=== PATIENT | female | born 1990 | race Caucasian/White ===

== ENCOUNTER 2017-07-09 22:12 | Inpatient (IN) | payer BC, OTHER ==
[~2017-07-09] VITALS: Ht 160 cm; Wt 65.8 kg
--- NOTE | 2017-07-09 22:55 | NUR ---
PREADMISSION NOTE: 27 year old, well-nourished, alert, caucasion female seen in Intake room. Patient states that she is allergic to Wellbutrin and Tegretol medications, and also she has had 1 seizure, in 2011, which was withdrawal related. Patient denies any pain at this time, though she states, " I'm tired. It's really been a long day". Vital signs are: 98-88-18 112/76, O2 Sat 98%. Patient given explanation about [facility] floor protocols and medication reconciliation. Patient nods her head and states, "Okay". Patient cooperative and verbally appropriate when interacting with nurse.
[2017-07-09] MEDS ORDERED: NICOTINE 14 MG/24HR PATCH TD PRN (23:15)
[2017-07-09] MEDS ORDERED: LOPERAMIDE HCL 2 MG CAPSULE PO PRN ×2 (23:15)
[2017-07-09] MEDS ORDERED: MAGNESIUM HYDROXIDE 30 ML LIQUID UDC PO PRN (23:15)
[2017-07-09] MEDS ORDERED: BUPRENORPHINE HCL 2 MG TAB.SUBL SL PRN (23:15)
[2017-07-09] MEDS ORDERED: MIRALAX 17 GM POWD.PACK PO PRN (23:15)
[2017-07-09] MEDS ORDERED: ONDANSETRON 4 MG/2 ML VIAL IM PRN (23:15)
[2017-07-09] MEDS ORDERED: LORAZEPAM 2 MG/1 ML VIAL IM PRN (23:15)
[2017-07-09] MEDS ORDERED: NICOTINE POLACRILEX 4 MG GUM-PK OF TEN BC PRN (23:15)
[2017-07-09] MEDS ORDERED: DICYCLOMINE HCL 20 MG TABLET PO PRN (23:15)
[2017-07-09] MEDS ORDERED: LORAZEPAM 1 MG TABLET PO PRN ×2 (23:15)
[2017-07-09] MEDS ORDERED: MAG HYDROX/AL HYDROX/SIMETH 30 ML LIQUID UDC PO PRN (23:15)
--- NOTE | 2017-07-09 23:17 | NUR ---
ADMISSION NOTE: Patient admitted to [facility], ambulatory, to room # 321, after being given a brief tour of [facility] floor and kitchen by PUBLICATIONS EDITOR staff. Gait is steady. Patient is oriented to person, place, day, date and her personal situation. Reoriented to time. Patient's color is pink and her skin is clean, warm, dry and intact. Bilateral lung sounds are clear per auscultation. Color tatoo noted on : (1)left wrist (2) left foot and (3) lower back. Multiple small, intact, closed lumps and bumps noted on and under patient's skin on her bilateral hands and forearms. Patient states, " Those are places where I missed". Patient states that she has a history of: endocarditis and pulmonary embolism, from 11/2016 and she contracted Hepatitis C in December,. Patient also has a history of anxiety and depression, and she states that she has been taking daily Lovenox 40 mg SQ since 11/2016. Patient stands 5 feet and 3 inches tall, and she weighs 145 lbs. Patient is admitted for: (1) Heroin, IV and smoked, daily, 2-3 grams. Last use was 07/09/17 in AM, 1 gram, inhaled. Patient has been using Heroin for 7 years, on/off. (2) Xanax, Oral, daily use, 4-6 mg. Last use was on 07/07/17 in AM, 2 mg oral. Patient has been using Xanax for 3 years, on/off. (3) Klonopin, Oral, daily use, 2-3 mg. Last use was on 07/08/17, 1 mg oral. Patient has been using Klonopin for the past month only. Patient states that her longest period of sobriety was in 2016, for 7 months. Patient states that she has previously been in treatment at (1) [facility] [place] [facility] (outpatient), in [place] , 90 days, 2016 (2) [facility], (inpatient), in [place], 60 days , 2013 (3) [facility], (inpatient), in [place], [place], 30 days, 2011. Vital signs are: 98.2-90-18 117/76, O2 Sat 98%, COWS 4, CIWA 2. Patient given sandwich snack with juice and water. Patient oriented to her room and nurse call light. Patient brought with her (1) OTC bottle of Vit B-12, 2000 mcg which was reconciled per floor protocol. Patient also brought with her 5 Empty prescription bottles, which were also reconciled per floor protocol. Patient is friendly, cooperative and verbally appropriate. Fall/Seizure precautions put in place. Bed is locked and in lowest position, padded bed rails are up X 2 and call light on bed. Please see more patient information on preadmission note.
[2017-07-10] VITALS: BP 117/76
[2017-07-10] MEDS ORDERED: LORAZEPAM 1 MG TABLET PO ONE (00:05)
[2017-07-10 00:14] LABS: *URINE HCG, QUAL NEGATIVE (NEGATIVE)
[2017-07-10] MEDS: IBUPROFEN 600 MG TABLET PO PRN ×2 (00:40→19:53)
--- NOTE | 2017-07-10 00:40 | NUR ---
PRN MEDICATION: Prn Motrin 600 mg p.o. given per c/o "pounding headache" , 6-7/10 pain scale.
[2017-07-10] MEDS: diphenhydrAMINE 50 MG CAPSULE PO PRN ×2 (00:41→20:32)
--- NOTE | 2017-07-10 00:41 | NUR ---
PRN MEDICATION: Prn Benadryl 50 mg p.o. given for sleep.
[2017-07-10] MEDS ORDERED: LORAZEPAM 1 MG TABLET ONE (00:46)
[2017-07-10] MEDS ORDERED: IBUPROFEN 600 MG TABLET ONE (00:47)
[2017-07-10] MEDS ORDERED: diphenhydrAMINE 50 MG CAPSULE ONE (00:47)
[2017-07-10] MEDS ORDERED: OXYC15TA2 PO (01:11)
[2017-07-10] MEDS ORDERED: CLON0.1T PO (01:11)
[2017-07-10] MEDS ORDERED: CLON0.5T4 PO ×2 (01:11)
[2017-07-10] MEDS ORDERED: PENI500T PO (01:11)
--- NOTE | 2017-07-10 01:41 | NUR ---
REASSESSMENT PRN MEDICATIONS: Patient is sleeping soundly in -like position of comfort, with eyes closed and respirations quiet, unlabored at 14.
[2017-07-10 04:00] VITALS: BP 119/79
--- NOTE | 2017-07-10 04:00 | NUR ---
V/S are: 97.9-81-12 119/79, O2 Sat 99%. Patient too sleepy to do COWS, CIADEN at this time.
--- NOTE | 2017-07-10 06:30 | NUR ---
0630 Patient slept a total of 5 hours and she had 2 voids and no stools. Total intake was 860 ml p.o. Prn medications given noted separately per floor protocol. V/SS afebrile, last COWS 2 last CIWA 2 at this time. SQD hose applied to patient's bilateral lower legs and pump turned. Patient is presently resting comfortably in stable condition with eyes closed and respirations even at 14.
[2017-07-10 06:59] LABS: *AMPHETAMINE, URINE POSITIVE (NEGATIVE); *BARBITURATE, URINE NEGATIVE (NEGATIVE); *CANNABINOID, URINE NEGATIVE (NEGATIVE); *COCCAINE, URINE NEGATIVE (NEGATIVE); *PHENCYCLIDINE SCREEN,URINE NEGATIVE (NEGATIVE)
--- NOTE | 2017-07-10 07:05 | NUR ---
COWS 2, CIWA 2.
--- NOTE | 2017-07-10 07:15 | NUR ---
Start of shift note SBAR report rcv'd. Pt was admitted for benzo and opiate dependence. Pt has an allergies to wellbutrin, tegretol, is a full code and on a regular diet. Pt has a PMHx of endocarditis in 11/2016, PE in 11/27, hep C, anxiety, depression, and had an appendectomy. Pt is going to start a 5 day ativan and 5 day subutex taper today. Pt is currently resting in bed, pt has no complaints at this time. Will continue to monitor pt.
[2017-07-10 07:24] LABS: *OPIATE, URINE POSITIVE (NEGATIVE)
[2017-07-10 08:00] VITALS: BP 106/68
[2017-07-10] MEDS ORDERED: GABAPENTIN 300 MG CAPSULE PO SCH (09:00)
[2017-07-10] MEDS ORDERED: TUBERCULIN,PURIF.PROT.DERIV. 5 TU/0.1 ML TEST ID ONE (09:00)
[2017-07-10] MEDS: LORAZEPAM 1 MG TABLET PO SCH ×4 (09:58→20:32)
[2017-07-10] MEDS: BUPRENORPHINE HCL 2 MG TAB.SUBL SL SCH ×4 (09:58→20:33)
[2017-07-10] MEDS: ENOXAPARIN SODIUM 40 MG/0.4 ML DISP.SYRIN SQ SCH (10:01)
[2017-07-10] MEDS: METOPROLOL SUCCINATE XL 25 MG TAB.SR.24H PO SCH (10:45)
--- NOTE | 2017-07-10 11:11 | NUR ---
PRN administration Pt vomiting multiple times. Administered PRN zofran IM to LD. Will continue to monitor pt.
--- NOTE | 2017-07-10 11:41 | NUR ---
Reassessment Pt states that her nausea has improved, no vomiting noted. Will continue to monitor. Dr Paniagua aware, gave ok to give 1300 meds now.
[2017-07-10 12:00] VITALS: BP 114/72
[2017-07-10] MEDS ORDERED: LORAZEPAM 1 MG TABLET PO PRN ×2 (12:00)
--- NOTE | 2017-07-10 12:11 | NUR ---
Reassessment Pt noted to be sleeping soundly in her bed. Will continue to monitor pt. All needs addressed at this time.
[2017-07-10] MEDS: ONDANSETRON ODT 4 MG TAB.RAPDIS SL PRN ×2 (14:26→20:30)
--- NOTE | 2017-07-10 14:26 | NUR ---
PRN administration Pt c/o nausea and vomited x 2, administered PRN zofran SL per MD order. Will continue to monitor pt.
--- NOTE | 2017-07-10 14:28 | NUR ---
PRN administration Pt has COWS of 14 and CIWA of 13. Administered PRN subutex and ativan per MD order. Waited several minutes after zofran was completely dissolved between administration. Will continue to monitor.
--- NOTE | 2017-07-10 14:56 | NUR ---
Reassessment Pt states that her nausea has improved, no vomiting noted. Pt states that she doesn't want to take the gabapentin at this time d/t her consistent nausea. Will continue to monitor pt.
[2017-07-10] MEDS: GABAPENTIN 300 MG CAPSULE PO SCH ×2 (15:00→20:31)
--- NOTE | 2017-07-10 15:26 | NUR ---
Reassessment Pt states that the medications were effective in alleviating her severe s/s of withdrawal. Pt has a COWS of 8 and CIWA of 7. Will continue to monitor pt.
[2017-07-10 16:30] VITALS: BP 138/82
[2017-07-10] MEDS: ACETAMINOPHEN 325 MG TABLET PO PRN (16:48)
[2017-07-10] MEDS: METHOCARBAMOL 750 MG TABLET PO PRN (16:48)
--- NOTE | 2017-07-10 16:50 | NUR ---
Reassessment pt states that she feels comfortable at this time and that the medications were effective in reducing her headache and body aches to a 2/10. Will continue to monitor pt. All needs addressed at this time.
--- NOTE | 2017-07-10 16:50 | NUR ---
PRN administration Pt c/o body ache 01/20 and a headache 12/21. administered PRN robaxin and tylenol per MD order. Will continue to monitor pt.
--- NOTE | 2017-07-10 19:14 | NUR ---
End of shift note Pt was admitted for benzo and opiate dependence. Pt has an allergies to wellbutrin, tegretol, is a full code and on a regular diet. Pt has a PMHx of endocarditis in 11/2016, PE in 11/27, hep C, anxiety, depression, and had an appendectomy. Pt subutex taper and ativan taper were initiated during the shift. Pt required multiple PRN medications during the shift to manage her severe s/s of withdrawal. Pt had a COWS and CIWA of 9 and 5 at 1600 after multiple medications. Pt is currently sleeping in bed. SBAR report endorsed to nurse.
--- NOTE | 2017-07-10 19:38 | NUR ---
Start of Shift Patient is a 27 year old female admitted to [facility] on 07-09-17 for Opiate, and benzo detox. PAtient has PMH of Endocarditis, Pulmonary Embolism, Hepatitis C, Anxiety and Depression. She has allergies to Wellbutrin and tegretol. She is a full code and on a regular diet. She is on fall and seizure precautions. Last COWS 9, CIWA 5. Patient with vomiting and nausea during day. Currently in bed with eyes closed resting. Safety measures in place, bed locked in lowest position with 2 padded side rails up for safety. Call light within reach. Report received from AM nurse.
[2017-07-10 20:00] VITALS: BP 117/77
--- NOTE | 2017-07-10 20:30 | NUR ---
PRN medication Patient with noted nausea. Zofran 4mg SL administered with effect pending Patient with complaints of abdominal spasms Bentyl 20 mg PO administered. Effect pending. Patient with complaints of headache 01/20. Motrin 600 mg PO administered. Effect pending Patient with complaints of difficulty sleeping Benadryl 50 mg PO administered. Effect pending.
[2017-07-10] MEDS: QUETIAPINE FUMARATE 100 MG TABLET PO SCH (20:31)
--- NOTE | 2017-07-10 21:00 | NUR ---
Reassessment of patient Patient reassessed 30 minutes S/P administration of Zofran 4mg Sl for nausea. No further N/V reported. Patient resting comfortably Tolerating fluids/snacks.
--- NOTE | 2017-07-10 21:34 | NUR ---
Reassessment of patient Patient reassessed one hour after administration of Bentyl 20 mg PO administered. Effectiveness noted. Patient denies current abdominal spasms. Patient reassessed one hour after Motrin 600 mg PO administered. Effectiveness noted. Patient denies current headache. Patient reassessed one hour after Benadryl 50 mg PO administered. Effect fair. Patient resting in bed, feeling tired, but not asleep upon reassessment.
--- NOTE | 2017-07-10 23:43 | NUR ---
Reassessment of patient Patient reassessed one hour after receiving Tylenol 650 mg po administered for headache. Patient reports decrease in headache/ effect noted.
[2017-07-11] VITALS: BP 140/85
--- NOTE | 2017-07-11 04:00 | NUR ---
COWS/CIWA deferred 0400 COWS/CIWA deferred for sleep
[2017-07-11 04:14] VITALS: BP 113/59
--- NOTE | 2017-07-11 06:51 | NUR ---
End of shift Patient is a 27 year old female admitted to [facility] on 07-09-17 for Opiate, and Benzodiazepine detox. Patient has PMH of Endocarditis, Pulmonary Embolism, Hepatitis C, Anxiety and Depression. She has allergies to Wellbutrin and Tegretol. She is a full code and on a regular diet. She is on fall and seizure precautions. She has intermittent Pneumatic CD in place. Patient VS at 2000 BP 117/77, P 100 R 16, SPO2 100% on RA T 98.2. COWS 7 CIWA 9. VS at 0000 BP 140/85, P 94, R 16, SPO2 97% on RA, T 98.2. COWS 3, CIWA 3. VS at 0400 BP 113/59, P 84, R 16, SPO2 99% on RA, T 98.0 Patient slept a total of 10 hours. Intake 1250 ml output 2 voids . Safety measures in place, bed locked in lowest position with 2 padded side rails up for safety. Call light within reach. Report given to AM nurse.
--- NOTE | 2017-07-11 07:45 | NUR ---
START OF SHIFT Rcvd endorsement from ongoing nurse, client is in room, she is a/o x 4, she presents with depressed mood, flat affect. She reports restless legs, body aches, abdominal cramps, nausea, and chills. Encouraged client to attend group therapy for skills to maintain sober. Encouraged client to increase PO fluid as tolerated to facilitate detox. Client is a 27 y/o female, admitted to [facility] for withdrawal from benzodiazepine and heroin. She is on 5 day Ativan/Subutex taper (day 3), tolerating well. Last CIWA 3/ COWS 3 @ 2400. PRN Motrin 600mg PO for DAVIS, Bentyl 20mg for abdominal spasms PO for anxiety, Benadryl 50mg PO for inability to sleep, she slept 10 hrs. She denies any of withdrawal-induced seizures, Client reports allergy to bupropion, carbamazepine, she is full code, Regular diet. Side rails x 2 up/padded for seizure precautions. Call light within reach.
[2017-07-11 08:00] VITALS: BP 118/73
[2017-07-11] MEDS: BUPRENORPHINE HCL 2 MG TAB.SUBL SL SCH ×3 (09:37→20:57)
[2017-07-11] MEDS: LORAZEPAM 1 MG TABLET PO SCH ×3 (09:37→20:56)
[2017-07-11] MEDS: GABAPENTIN 300 MG CAPSULE PO SCH ×3 (09:37→20:56)
[2017-07-11] MEDS: SERTRALINE HCL 100 MG TABLET PO SCH (09:38)
[2017-07-11] MEDS: ENOXAPARIN SODIUM 40 MG/0.4 ML DISP.SYRIN SQ SCH (09:39)
[2017-07-11] MEDS: METOPROLOL SUCCINATE XL 25 MG TAB.SR.24H PO SCH (09:58)
[2017-07-11 12:55] VITALS: BP 123/87
[2017-07-11] MEDS ORDERED: DICYCLOMINE HCL 10 MG CAPSULE PO PRN (15:32)
[2017-07-11] MEDS: ACETAMINOPHEN 325 MG TABLET PO PRN ×2 (16:02→22:43)
--- NOTE | 2017-07-11 16:04 | NUR ---
PRN medication; Patient is complaining of generalized pain and headache rated 6/10 on pain scale. PRN Tylenol 650mg PO given for pain. Will continue to monitor patient and will notify primary nurse.
[2017-07-11 16:55] VITALS: BP 120/77
--- NOTE | 2017-07-11 17:04 | NUR ---
Reassessment PRN Tylenol 650 mg PO effective, client verbalizes relief from generalized pain and headache 0/10.
--- NOTE | 2017-07-11 19:28 | NUR ---
END OF SHIFT Endorsed client to incoming nurse, Client is a 27 y/o female, she is a/o x 4, admitted to [facility] for withdrawal from benzodiazepine and heroin. She is on 5 day Ativan/Subutex taper (day 3), tolerating well. Last CIWA 7/ COWS 7 @ 1600. PRN Tylenol 650mg PO for DAIVS, noted effective. She continue to present with anxious mood, flat affect, chills, and fatigue. Encouragement needed to attend to group therapy. Adequate PO fluid intake 1596mL, void x 4. She denies hx of withdrawal-induced seizures, Client report allergy to bupropion, carbamazepine, she is full code, Regular diet. Side rails x 2 up/padded for seizure precautions. Call light within reach.
--- NOTE | 2017-07-11 19:30 | NUR ---
Start of Shift Patient is a 27 year old female admitted to [facility] on 07-09-17 for Opiate, and benzo detox. Patient has PMH of Endocarditis, Pulmonary Embolism, Hepatitis C, Anxiety and Depression. She has allergies to Wellbutrin and Tegretol. She is a full code and on a regular diet. She is on fall and seizure precautions. Last COWS 7, CIWA 7 at 1600. Safety measures in place, bed locked in lowest position with 2 padded side rails up for safety. Call light within reach. Report received from AM nurse.
[2017-07-11 20:00] VITALS: BP 134/97
[2017-07-11] MEDS: diphenhydrAMINE 50 MG CAPSULE PO PRN (20:56)
[2017-07-11] MEDS: QUETIAPINE FUMARATE 100 MG TABLET PO SCH (20:56)
--- NOTE | 2017-07-11 20:56 | NUR ---
PRN medication Patient reports inability to sleep, requesting Benadryl. Patient received Benadryl 50 mg PO at 2055 Effect pending.
--- NOTE | 2017-07-11 21:56 | NUR ---
Reassessment of patient Patient reassessed one hour after PRN Benadryl 50 mg administered for sleeplessness. Patient reports feeling "tired" but not yet sleeping. Effect noted as fair at present time.
[2017-07-11] MEDS: ONDANSETRON ODT 4 MG TAB.RAPDIS SL PRN (22:43)
--- NOTE | 2017-07-11 22:43 | NUR ---
PRN medication Patient with headache 5 out of 10 Tylenol 650 mg po administered. effect pending
--- NOTE | 2017-07-11 22:48 | NUR ---
PRN medication Patient with complaints of nausea. Zofran 4mg SL PO administered PRN. Effect pending.
--- NOTE | 2017-07-11 23:12 | NUR ---
Reassessment of patient Patient reassessed 30 minutes after administration of Zofran 4mg SL administered for nausea. Patient reports nausea subsided.
[2017-07-12] VITALS: BP 106/68
[2017-07-12 04:00] VITALS: BP 113/69
--- NOTE | 2017-07-12 04:00 | NUR ---
COWS/CIWA deferred 0400 COWS/CIWA deferred for sleep
--- NOTE | 2017-07-12 06:52 | NUR ---
End of shift Patient is a 27 year old female admitted to [facility] on 07-09-17 for Opiate, and benzo detox. Patient has PMH of Endocarditis, Pulmonary Embolism, Hepatitis C, Anxiety and Depression. She has allergies to Wellbutrin and Tegretol. She is a full code and on a regular diet. She is on fall and seizure precautions. VS at 2000 BP 134/87, P 80, R 14, SPO2 98% on RA, T 98.6 COWS 8 CIWA 6. Patient received Benadryl 50 mg PO at 2055 for insomnia with effectiveness noted. Patient received Tylenol 650 mg PO for Headache at 2242 with good effect. Patient received Zofran 4mg SL at 2248 for nausea with good effect noted. VS at 0000 BP 106/68, P 96, R 14, SPO2 96% on RA, T 97.8. COWS 5, CIWA 4. VS at 0400 BP 113/69, P 64, R 16, T 98.1, SPO2 98% on RA. CIWA/COWS deferred for sleep. Patient slept a total of 7 hours. Intake 1355 ml Output 1 void. Safety measures in place, bed locked in lowest position with 2 padded side rails up for safety. Call light within reach. Report given to AM nurse.
--- NOTE | 2017-07-12 07:42 | NUR ---
Start of shift note; Received report from night nurse. Patient is 27 year old female admitted on 07/09/17 for opiate/Benzo, Patient was placed on Ativan and Subutex taper. Patient noted to be allergic to Wellbutrin and Tegretol.Patient reported history of endocarditis, pulmonary embolism, HEP C, anxiety, depression, appendectomy. PRN Zofran, Tylenol, Benadryl were given last night all noted to be effective. Patient's last CIWA is 4 and last COWS is 5 noted at 2100 per endorsement. Patient is on fall and seizure precaution. Bed in lowest position, call light within reach. Will continue to monitor patient.
[2017-07-12 08:00] VITALS: BP 125/81
[2017-07-12 08:36] LABS: BASOPHILS % (AUTO) 0.7 % (0.0-2.0); EOSINOPHILS # (AUTO) 0.5 K/uL (0.0-0.7); EOSINOPHILS % (AUTO) 6.9 % (0.0-7.0); HEMATOCRIT 37.9 % (31.2-41.9); HEMOGLOBIN 12.9 g/dL (10.9-14.3); LYMPHOCYTES # (AUTO) 3.2 K/uL (20.0-40.0); LYMPHOCYTES % (AUTO) 45.1 % (20.5-51.5); MEAN CORPUSCULAR HEMOGLOBIN 28.3 uug (24.7-32.8); MEAN CORPUSCULAR HGB CONC 34 g/dL (32.3-35.6); MEAN CORPUSCULAR VOLUME 83.1 fL (75.5-95.3); MONOCYTES # (AUTO) 0.4 K/uL (2.0-10.0); MONOCYTES % (AUTO) 5.9 % (0.0-11.0); NEUTROPHILS # (AUTO) 2.9 K/uL (1.8-8.9); NEUTROPHILS % (AUTO) 41.4 % (38.5-71.5); PLATELET COUNT (AUTO) 224 K/uL (179-408); RED BLOOD CELL COUNT(AUTO) 4.56 MIL/uL (3.63-4.92); WHITE BLOOD COUNT (AUTO) 7.1 K/uL (3.8-11.8)
[2017-07-12 08:49] LABS: ALANINE AMINOTRANSFERASE 16 U/L (14-59); ALKALINE PHOSPHATASE 55 U/L (50-136); ASPARTATE AMINOTRANSFERASE 8 U/L (15-37); BILIRUBIN,TOTAL 0.1 mg/dL (0.2-1.0); CARBON DIOXIDE 25 mmol/L (21-32); CHLORIDE 106 mmol/L (98-107); ETHANOL < 3 MG/DL (0-0); GLUCOSE 97 mg/dL (74-106); MAGNESIUM 1.8 mg/dL (1.8-2.4); POTASSIUM 3.5 mmol/L (3.5-5.1); TOTAL PROTEIN, SERUM 7.2 g/dL (6.4-8.2); UREA NITROGEN, BLOOD 11 mg/dL (7-18)
[2017-07-12] MEDS: GABAPENTIN 300 MG CAPSULE PO SCH (08:51)
[2017-07-12] MEDS: METOPROLOL SUCCINATE XL 25 MG TAB.SR.24H PO SCH (08:52)
[2017-07-12] MEDS: LORAZEPAM 1 MG TABLET PO SCH ×3 (08:52→20:59)
[2017-07-12] MEDS: ENOXAPARIN SODIUM 40 MG/0.4 ML DISP.SYRIN SQ SCH (08:52)
[2017-07-12] MEDS: SERTRALINE HCL 100 MG TABLET PO SCH (08:52)
[2017-07-12] MEDS ORDERED: BUPRENORPHINE HCL 2 MG TAB.SUBL SL SCH ×2 (09:00→15:00)
--- NOTE | 2017-07-12 10:32 | NUR ---
Therapist prompted client about group times. Client stated she will start attending groups today.
[2017-07-12 12:00] VITALS: BP 130/90
--- NOTE | 2017-07-12 13:45 | NUR ---
Activity Group Note: Client participated in "Mau" activity. Intervention goal was to increase task focus and leisure skills. Client appeared to have an anxious mood with flat affect. Client had a coherent and goal-directed thought process, as she was able to understand and complete the task. Client stated that the activity was "fun, but I want to go relax now." She left activity group 30 minutes early. Client benefits from leisure activities and social interaction with peers. 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
[2017-07-12] MEDS ORDERED: KETOROLAC TROMETHAMINE 30 MG INJ IM PRN (14:15)
[2017-07-12] MEDS: BACLOFEN 10 MG TABLET PO SCH ×2 (14:31→20:58)
[2017-07-12] MEDS: BUPRENORPHINE HCL 2 MG TAB.SUBL SL SCH ×3 (14:31→20:59)
[2017-07-12] MEDS: DICYCLOMINE HCL 10 MG CAPSULE PO SCH ×2 (14:31→20:58)
[2017-07-12] MEDS: GABAPENTIN 400 MG CAPSULE PO SCH ×2 (14:31→20:59)
[2017-07-12] MEDS ORDERED: DICYCLOMINE HCL 20 MG TABLET PO SCH (15:00)
[2017-07-12 16:00] VITALS: BP 118/82
[2017-07-12] MEDS: ASPIRIN/ACETAMINOPHEN/CAFFEINE TABLET PO PRN (17:04)
--- NOTE | 2017-07-12 17:10 | NUR ---
PRN medication; Patient is complaining of migraine. PRN Excedrin 1 tab given as per ordered. Will continue to monitor patient for effectiveness of medication.
--- NOTE | 2017-07-12 18:10 | NUR ---
Re-assessment; Patient denies headache at this time. PRN medication is effective.
--- NOTE | 2017-07-12 18:19 | NUR ---
End of shift note; Patient is AOX4. Patient is 27 year old female admitted on 07/09/17 for opiate/Benzo, Patient was placed on Ativan and Subutex taper. Patient noted to be allergic to Wellbutrin and Tegretol.Patient reported history of endocarditis, pulmonary embolism, HEP C, anxiety, depression, appendectomy. Patient remained compliant with treatment plan and medication regime. Medications were effective in reducing withdrawal symptoms. Patient's last COWS is 4 and last CIWA is 3 at 1600. Met all patient's needs.
--- NOTE | 2017-07-12 19:12 | NUR ---
Start of shift note Received report from day shift nurse. Pt is a 27 yo female, A+Ox4, presenting to [facility] for Opiate/Benzo dependence. Pt has Allergies to Wellbutrin and Tegretol, is on full code status, and on Regular diet. Pt is on Fall and Seizure precautions. Pt has HX of Endocarditis, Pulmonary Embolism, Hep C, Anxiety, Depression, and Appendectomy. Pt is on 5 day Ativan and 5 day Subutex tapers, tolerated well. No s/s of distress noted at this time. Respirations even and unlabored. Will continue to monitor.
[2017-07-12 20:20] VITALS: BP 118/77
[2017-07-12] MEDS: QUETIAPINE FUMARATE 100 MG TABLET PO SCH (20:58)
[2017-07-12] MEDS: ONDANSETRON ODT 4 MG TAB.RAPDIS SL PRN (23:03)
--- NOTE | 2017-07-12 23:09 | NUR ---
PRN Zofran and Bentyl Pt c/o nausea and abdominal cramps and requested for PRN Zofran and Bentyl. Medications given and tolerated well. Will reassess within 1 HR. Will continue to monitor.
--- NOTE | 2017-07-13 00:05 | NUR ---
PRN Zofran and Bentyl Reassessment Medications effective. Pt is resting well in bed. No s/s of ASE/distress noted at this time. Respirations even and unlabored. Will continue to monitor.
[2017-07-13 00:53] VITALS: BP 114/73
[2017-07-13 04:05] VITALS: BP 112/71
--- NOTE | 2017-07-13 06:51 | NUR ---
End of shift note Pt is a 27 yo female, A+Ox4, presenting to [facility] for Opiate/Benzo dependence. Pt has Allergies to Wellbutrin and Tegretol, is on full code status, and on Regular diet. Pt is on Fall and Seizure precautions. Pt has HX of Endocarditis, Pulmonary Embolism, Hep C, Anxiety, Depression, and Appendectomy. Pt is on 5 day Ativan and 5 day Subutex tapers, tolerated well. Pt was given PRN Zofran and Bentyl @2309. Pt slept for a total of 7 HRS. Last COWS: 2 and Last CIWA: 2 @0400. No s/s of distress noted at this time. Respirations even and unlabored. Will endorse to day shift nurse.
--- NOTE | 2017-07-13 07:31 | NUR ---
Start of shift note; Received report from night nurse. Patient is 27 year old female admitted on 07/09/17 for opiate/Benzo, Patient was placed on Ativan and Subutex taper. Patient noted to be allergic to Wellbutrin and Tegretol.Patient reported history of endocarditis, pulmonary embolism, HEP C, anxiety, depression, appendectomy. PRN Zofran, Tylenol, Bentyl were given last night all noted to be effective. Patient's last CIWA is 2 and last COWS is 2 noted at 2100 per endorsement. Patient slept for 7 hours. Patient is on fall and seizure precaution. Bed in lowest position, call light within reach. Will continue to monitor patient.
[2017-07-13 08:00] VITALS: BP 109/68
[2017-07-13 08:06] LABS: HEPATITIS B SURFACE AG Negative (Negative)
[2017-07-13] MEDS: DICYCLOMINE HCL 10 MG CAPSULE PO SCH ×2 (08:39→15:00)
[2017-07-13] MEDS: METOPROLOL SUCCINATE XL 25 MG TAB.SR.24H PO SCH (08:40)
[2017-07-13] MEDS: BACLOFEN 10 MG TABLET PO SCH ×2 (08:40→15:18)
[2017-07-13] MEDS: LORAZEPAM 1 MG TABLET PO SCH ×2 (08:40→20:16)
[2017-07-13] MEDS: BUPRENORPHINE HCL 2 MG TAB.SUBL SL SCH ×3 (08:40→20:17)
[2017-07-13] MEDS: SERTRALINE HCL 100 MG TABLET PO SCH (08:40)
[2017-07-13] MEDS: GABAPENTIN 400 MG CAPSULE PO SCH ×2 (08:40→15:19)
[2017-07-13] MEDS: ENOXAPARIN SODIUM 40 MG/0.4 ML DISP.SYRIN SQ SCH (08:41)
[2017-07-13 12:00] VITALS: BP 115/77
[2017-07-13 16:00] VITALS: BP 119/83
[2017-07-13] MEDS: ASPIRIN/ACETAMINOPHEN/CAFFEINE TABLET PO PRN (16:09)
--- NOTE | 2017-07-13 16:12 | NUR ---
PRN medication; Patient is complaining of migraines, PRN Excedrin 1 tab given for migraines. Will continue to monitor patient for effectiveness of medication.
--- NOTE | 2017-07-13 17:12 | NUR ---
Re-assessment; Patient denies migraine at this time. PRN medication noted to be effective.
--- NOTE | 2017-07-13 18:19 | NUR ---
End of shift note; Patient is AOX4. Patient is 27 year old female admitted on 07/09/17 for opiate/Benzo, Patient was placed on Ativan and Subutex taper. Patient noted to be allergic to Wellbutrin and Tegretol.Patient reported history of endocarditis, pulmonary embolism, HEP C, anxiety, depression, appendectomy. Patient remained compliant with treatment plan and medication regime. Medications were effective in reducing withdrawal symptoms. Patient's last COWS is 2 and last CIWA is 2 at 1600. Met all patient's needs.
[2017-07-13 20:00] VITALS: BP 117/75
--- NOTE | 2017-07-13 20:00 | NUR ---
Start of Shift Pt is a 27 year old female admitted for Opiate/Benzo dependence, placed on 5 day Ativan and 5 day Subutex taper. Pt reported using Heroin 2-3g/daily, Xanax 4-6mg/daily and Klonopin 2-3mg/daily. PMH: endocarditis, pulmonary embolism (pt is on Lovenox SQ daily), Hepatitis C, anxiety, depression and appendectomy. Pt reports allergies to Wellbutrin and Tegretol. Upon assessment, pt reports feeling anxious, reports muscle aches, stomach cramps, skin clammy/flushed, respirations even/unlabored, denies SOB/chest pain, denies n/v/d, medications due, safety measures in place, call light within reach, side rails up x2, bed locked and in low position. Will continue to monitor.
[2017-07-13] MEDS: BACLOFEN 20 MG TABLET PO SCH (20:16)
[2017-07-13] MEDS: QUETIAPINE FUMARATE 100 MG TABLET PO SCH (20:16)
[2017-07-13] MEDS: GABAPENTIN 300 MG CAPSULE PO SCH (20:16)
[2017-07-13] MEDS: DICYCLOMINE HCL 20 MG TABLET PO SCH (20:17)
[2017-07-13] MEDS: ONDANSETRON ODT 4 MG TAB.RAPDIS SL PRN (21:32)
--- NOTE | 2017-07-13 21:32 | NUR ---
Pt reports feeling nauseous and anxious. Episode of emesis. BP 139/90, pulse 98 Zofran 4mg ODT PRN, Clonidine 0.1mg PRN administered. Safety measures in place, will continue to monitor.
[2017-07-13] MEDS: CLONIDINE HCL 0.1 MG TABLET PO PRN (21:39)
--- NOTE | 2017-07-13 22:32 | NUR ---
Pt reports relief of nausea. BP 125/77, pulse 92 Needs met, safety measures in place, will continue to monitor.
[2017-07-13] MEDS ORDERED: METOPROLOL TARTRATE 50 MG TABLET PO ONE (23:00)
[2017-07-13] MEDS ORDERED: LORAZEPAM 1 MG TABLET PO ONE (23:00)
--- NOTE | 2017-07-13 23:00 | NUR ---
Pt reports chest pain, rated 6-7/10 and radiated towards left shoulder. BP 145/89, pulse 130, SpO2 95% - pt placed on O2 at 2 liters for precaution MD notified, new orders given. Metoprolol 50mg x1 and Ativan 2 mg x1 administered. EKG resulted in Normal Sinus Rhythm Awaiting on results of Chest x-ray and Labs Troponin, D-Dimer , BMP & CBC. Safety measures in place, will continue to monitor.
[2017-07-13] MEDS ORDERED: LORAZEPAM 1 MG TABLET ONE (23:13)
[2017-07-13] MEDS ORDERED: METOPROLOL TARTRATE 50 MG TABLET ONE (23:13)
[2017-07-13 23:24] LABS: BASOPHILS # (AUTO) 0.1 K/uL (0.0-8.0); BASOPHILS % (AUTO) 0.5 % (0.0-2.0); EOSINOPHILS # (AUTO) 0.6 K/uL (0.0-0.7); EOSINOPHILS % (AUTO) 5.5 % (0.0-7.0); HEMATOCRIT 37.1 % (37-47); HEMOGLOBIN 12.4 G/DL (12.0-16.0); LYMPHOCYTES # (AUTO) 3.6 K/UL (0.8-4.8); LYMPHOCYTES % (AUTO) 33.9 % (20.5-51.5); MEAN CORPUSCULAR HEMOGLOBIN 27.6 UUG (27.0-31.0); MEAN CORPUSCULAR HGB CONC 34 g/dL (32.0-37.0); MEAN CORPUSCULAR VOLUME 82.2 FL (81.0-99.0); MONOCYTES # (AUTO) 0.6 K/UL (0.1-1.30); MONOCYTES % (AUTO) 5.5 % (0.0-11.0); NEUTROPHILS # (AUTO) 5.6 K/UL (1.8-8.9); NEUTROPHILS % (AUTO) 54.6 % (38.5-71.5); PLATELET COUNT (AUTO) 233 K/UL (150-450); RED BLOOD CELL COUNT(AUTO) 4.51 MIL/UL (4.2-5.4); WHITE BLOOD COUNT (AUTO) 10.5 K/UL (4.0-11.2)
[2017-07-13 23:31] LABS: CREATININE 1.1 mg/dL (0.6-1.3); MAGNESIUM 1.6 mg/dL (1.8-2.4)
[2017-07-13] MEDS ORDERED: MAGNESIUM OXIDE 400 MG TABLET PO ONE (23:45)
[2017-07-14] VITALS: BP 107/58
--- NOTE | 2017-07-14 | NUR ---
Magnesium 1.6, Supplemented with Mag-Ox 800mg BP 107/58, pulse 84, resp 18, SpO2 96% room air, no reports of pain, no reports of chest pain CIWA 4, COWS 4. Needs met, Safety measures in place, will continue to monitor
[2017-07-14] MEDS ORDERED: MAGNESIUM OXIDE 400 MG TABLET ONE (00:02)
[2017-07-14 04:00] VITALS: BP 97/58
--- NOTE | 2017-07-14 04:00 | NUR ---
Vital Signs/COWS & CIWA deferred BP 97/58, pulse 78, resp 16, SpO2 96% room air, temp 98.1, no pain COWS/CIWA deferred due to pt sleeping, to assess while pt is awake as ordered. Safety measures in place, will continue to monitor.
--- NOTE | 2017-07-14 06:57 | NUR ---
End of Shift Pt is a 27 year old female admitted for Opiate/Benzo dependence, placed on 5 day Ativan and 5 day Subutex taper. Pt reported using Heroin 2-3g/daily, Xanax 4-6mg/daily and Klonopin 2-3mg/daily. PMH: endocarditis, pulmonary embolism (pt is on Lovenox SQ daily), Hepatitis C, anxiety, depression and appendectomy. Pt reports allergies to Wellbutrin and Tegretol. During shift, pt reported feeling anxious, reports muscle aches, stomach cramps, skin clammy/flushed scheduled taper medications administered, effective in management of s/s of withdrawal, CIWA 4 and COWS 4. Clonidine 0.1mg PRN and Zofran 4mg ODT PRN administered, both effective. At 2300, pt reported chest pain, rated 6-7/10 and radiated towards left shoulder with BP 145/89, pulse 130, SpO2 95% - pt placed on O2 at 2 liters for precaution .MD notified, new orders given: Metoprolol 50mg x1 and Ativan 2 mg x1 administered. EKG resulted in Normal Sinus Rhythm, Chest x-ray, Troponin, D-Dimer , BMP & CBC all resulted normal. Magnesium 1.6, Supplemented with Mag-Ox 800mg . Latest BP 97/58, pulse 78, resp 16, SpO2 96% room air with no reports of chest pain. Pt slept for 6 hours, intake of 1446 ml PO, voids x2 and stool x0. VTE 2, SCD pumps at bedside. Safety measures in place, call light within reach, side rails up x2, bed locked and in low position. Endorsed to day shift nurse.
--- NOTE | 2017-07-14 07:19 | NUR ---
Start of shift note; Received report from night nurse. Patient is 27 year old female admitted on 07/09/17 for opiate/Benzo, Patient was placed on Ativan and Subutex taper, no adverse reactions noted. Patient noted to be allergic to Wellbutrin and Tegretol.Patient reported history of endocarditis, pulmonary embolism, HEP C, anxiety, depression, appendectomy. Patient's last COWS score is 4 and last CIWA is 4. Patient had chest pain episode last night, EKG, troponin level, BMP, CMP and chest Xray done, all noted to be within normal limits. Patient received one time order of magnesium, Ativan, Lopressor all noted to be effective per endorsement. Patient slept for 6 hours. Patient is on fall and seizure precaution. Bed in lowest position, call light within reach. Patient is currently AOX4, denies any chest pain or anxiety. Will continue to monitor patient.
[2017-07-14 08:00] VITALS: BP 100/61
[2017-07-14] MEDS: SERTRALINE HCL 100 MG TABLET PO SCH (08:27)
[2017-07-14] MEDS: BACLOFEN 20 MG TABLET PO SCH ×3 (08:27→20:59)
[2017-07-14] MEDS: DICYCLOMINE HCL 20 MG TABLET PO SCH ×3 (08:27→20:59)
[2017-07-14] MEDS: METOPROLOL SUCCINATE XL 25 MG TAB.SR.24H PO SCH (08:27)
[2017-07-14] MEDS: GABAPENTIN 300 MG CAPSULE PO SCH ×3 (08:27→20:59)
[2017-07-14] MEDS: ENOXAPARIN SODIUM 40 MG/0.4 ML DISP.SYRIN SQ SCH (08:27)
[2017-07-14] MEDS: IBUPROFEN 600 MG TABLET PO PRN (08:40)
[2017-07-14] MEDS ORDERED: LORAZEPAM 1 MG TABLET PO SCH (09:00)
[2017-07-14] MEDS ORDERED: BUPRENORPHINE HCL 2 MG TAB.SUBL SL SCH (09:00)
--- NOTE | 2017-07-14 09:52 | NUR ---
PRN medication; Patient is complaining of pain r/t to toothache rated 6/10 on pain scale. PRN Motrin 600mg PO given for pain. Will continue to monitor patient.
[2017-07-14] MEDS: METHOCARBAMOL 750 MG TABLET PO PRN (10:39)
[2017-07-14] MEDS: CLONIDINE HCL 0.1 MG TABLET PO PRN (10:39)
--- NOTE | 2017-07-14 10:44 | NUR ---
PRN medication; Patient is complaining of muscle aches, chills, anxiety and agitation. PRN Robaxin 750mg PO given for muscle aches and Clonidine 0.1mg PO for agitation, anxiety and chills given as per ordered. Will continue to monitor patient for effectiveness of medication.
--- NOTE | 2017-07-14 10:52 | NUR ---
Re-assessment; Patient denies pain/toothache at this time. PRN medication noted to be effective.
[2017-07-14] MEDS ORDERED: LORAZEPAM 1 MG TABLET PO ONE (11:00)
--- NOTE | 2017-07-14 11:04 | NUR ---
Ativan one time dose; Patient was evaluated by MD. Patient noted to have increased anxiety and agitation, chills, sweating with current CIWA of 7. MD ordered Ativan 2mg PO one time. Relaxation techniques observed. Will closely monitor patient. Addendum: 07/14/17 at 1220 by MAX KEATING LVN Patient was educated by regarding HIV.
--- NOTE | 2017-07-14 11:44 | NUR ---
Re-assessment; Patient is calm at this time, decreased anxiety noted. Patient denies muscle aches at this time. PRN Clonidine and Robaxin noted to be effective.
[2017-07-14 12:00] VITALS: BP 100/63
--- NOTE | 2017-07-14 12:04 | NUR ---
Re-assessment; Patient appears calm, decreased anxiety noted with current CIWA score of 4. One time dose of Ativan noted to be effective.
[2017-07-14] MEDS: ONDANSETRON ODT 4 MG TAB.RAPDIS SL PRN (12:08)
--- NOTE | 2017-07-14 12:08 | NUR ---
PRN Zofran; Patient is complaining of nausea, no emesis noted. PRN Zofran 4mg ODT given. Will continue to monitor patient for effectiveness of medication.
--- NOTE | 2017-07-14 13:08 | NUR ---
Re-assessment; Patient denies nausea at this time. PRN Zofran noted to be effective.
[2017-07-14] MEDS: BUPRENORPHINE HCL 2 MG TAB.SUBL SL SCH ×2 (14:30→20:59)
[2017-07-14] MEDS: LORAZEPAM 1 MG TABLET PO SCH ×2 (14:31→20:59)
[2017-07-14 16:00] VITALS: BP 96/64
--- NOTE | 2017-07-14 16:43 | NUR ---
Nurse note; Patient is AOX4, currently in group therapy. Patient stated " I feel dizzy and lightheaded, im not sure why maybe because i am stressed out", assisted patient back to her room. Vital signs are as follows; BP 96/64, HR 81, Spo2 99% , Temperature 98.2, respirations of 18. Safety measures secured. Will closely monitor patient.
--- NOTE | 2017-07-14 18:29 | NUR ---
End of shift note; Patient is AOX4. Patient is 27 year old female admitted on 07/09/17 for opiate/Benzo, Patient was placed on Ativan and Subutex taper. Patient noted to be allergic to Wellbutrin and Tegretol.Patient reported history of endocarditis, pulmonary embolism, HEP C, anxiety, depression, appendectomy. Patient's Ativan and Subutex tapers were modified by MD. Patient remained compliant with treatment plan and medication regime. Medications were effective in reducing withdrawal symptoms. Patient's last COWS is 3 and last CIWA is 3 at 1600. Patient denies pain or discomfort at this time. Patient is calm and comfortable.All safety measures secured, call light within reach. no Met all patient's needs.
[2017-07-14 20:00] VITALS: BP 103/72
--- NOTE | 2017-07-14 20:00 | NUR ---
Start of Shift Pt is a 27 year old female admitted for Opiate/Benzo dependence, placed on modified Ativan and Subutex taper. Pt reported using Heroin 2-3g/daily, Xanax 4-6mg/daily and Klonopin 2-3mg/daily. PMH: endocarditis, pulmonary embolism (pt is on Lovenox SQ daily), Hepatitis C, anxiety, depression and appendectomy. Pt has new dx of HIV, diagnosed at [facility]. Pt reports allergies to Wellbutrin and Tegretol. Upon assessment, pt is in emotional distress due to stressful day. Pt states, I found out I have HIV today, pt is anxious, reports feeling muscle/joint aches, mild stomach cramps, skin is flushed/clammy. Pt is redirected, comfort measures provided, respirations even/unlabored, denies SOB/chest pain, denies n/v/d, medications due, safety measures in place, call light within reach, side rails up x2, bed locked and in low position. Will continue to monitor.
[2017-07-14] MEDS: ASPIRIN/ACETAMINOPHEN/CAFFEINE TABLET PO PRN (20:59)
[2017-07-14] MEDS: QUETIAPINE FUMARATE 100 MG TABLET PO SCH (20:59)
--- NOTE | 2017-07-14 20:59 | NUR ---
PRN Administration Pt reports a migraine headache rated 8/10. Excedrin Extra Strength 1 tab administered. Safety measures in place, will continue to monitor.
--- NOTE | 2017-07-14 21:59 | NUR ---
PRN Reassessment Upon reassessment, pt reports relief of headache. Needs met, safety measures in place, will continue to monitor.
[2017-07-15] VITALS: BP 101/57
--- NOTE | 2017-07-15 | NUR ---
Vital Signs/COWS & CIWA deferred BP 101/57, pulse 93, resp 18, SpO2 99% room air, temp 98.0, no pain COWS/CIWA deferred due to pt sleeping, to assess while pt is awake as ordered. Safety measures in place, will continue to monitor.
[2017-07-15 04:00] VITALS: BP 97/72
--- NOTE | 2017-07-15 04:00 | NUR ---
Vital Signs/COWS & CIWA deferred BP 97/72, pulse 68, resp 17, SpO2 100% room air, temp 97.8, no pain COWS/CIWA deferred due to pt sleeping, to assess while pt is awake as ordered. Safety measures in place, will continue to monitor.
[2017-07-15] MEDS: HYDROXYZINE PAMOATE 25 MG CAPSULE PO PRN ×2 (05:25→14:34)
--- NOTE | 2017-07-15 05:25 | NUR ---
PRN Administration Pt reports feeling anxious, requests relief. Vistaril 25mg PRN administered Safety measures in place, will continue to monitor.
--- NOTE | 2017-07-15 06:25 | NUR ---
PRN Reassessment Upon reassessment, pt is in bed resting with eyes closed, respirations even/unlabored. Safety measures in place, will continue to monitor.
--- NOTE | 2017-07-15 07:00 | NUR ---
End of Shift Pt is a 27 year old female admitted for Opiate/Benzo dependence, placed on modified Ativan and Subutex taper. Pt reported using Heroin 2-3g/daily, Xanax 4-6mg/daily and Klonopin 2-3mg/daily. PMH: endocarditis, pulmonary embolism (pt is on Lovenox SQ daily), Hepatitis C, anxiety, depression and appendectomy. Pt has new dx of HIV, diagnosed at [facility]. Pt reports allergies to Wellbutrin and Tegretol. During shift, pt was in emotional distress due to stressful day. Pt stated, I found out I have HIV today, pt presented with anxiety, reported feeling muscle/joint aches, mild stomach cramps, skin flushed/clammy. Pt was redirected, comfort measures provided scheduled taper medications administered, COWS 4 and CIWA 5. Excedrin Extra Strength 1 tab administered for reports of migraine headache, rated 8/10, effective. Vistaril 25mg PRN administered for anxiety. Pt slept for 8 hours, intake of 1546 ml PO, voids x2 and stool x0. Safety measures in place, call light within reach, side rails up x2, bed locked and in low position. Endorsed to day shift nurse.
--- NOTE | 2017-07-15 07:50 | NUR ---
START OF SHIFT Rcvd endorsement from ongoing nurse, client is in room, she is a/o x 4, she presents with anxious mood, flat affect. She reports restless legs, abdominal spasm, and fatigue. Encouraged client to attend group therapy for skills to maintain sober. Encouraged client to increase PO fluid as tolerated to facilitate detox. Client is a 27 y/o female, admitted to [facility] for withdrawal from benzodiazepine and heroin. She is on a modified 6 day Ativan/Subutex taper, tolerating well. Last CIWA 4/ COWS 5 @ 2400. PRN Vistaril 25mg Po for anxiety, noted effective. client slept 8 hrs. She denies any of withdrawal-induced seizures, Client reports allergy to bupropion, carbamazepine, she is full code, Regular diet. Side rails x 2 up/padded for seizure precautions. Call light within reach
[2017-07-15 08:08] VITALS: BP 112/68
[2017-07-15] MEDS: GABAPENTIN 300 MG CAPSULE PO SCH ×3 (08:38→20:46)
[2017-07-15] MEDS: SERTRALINE HCL 100 MG TABLET PO SCH (08:38)
[2017-07-15] MEDS: BACLOFEN 20 MG TABLET PO SCH ×3 (08:38→20:46)
[2017-07-15] MEDS: ENOXAPARIN SODIUM 40 MG/0.4 ML DISP.SYRIN SQ SCH (08:39)
[2017-07-15] MEDS: METOPROLOL SUCCINATE XL 50 MG TAB.SR.24H PO SCH (08:41)
[2017-07-15] MEDS: DICYCLOMINE HCL 20 MG TABLET PO SCH ×3 (08:57→20:46)
[2017-07-15] MEDS ORDERED: LORAZEPAM 1 MG TABLET PO SCH (09:00)
[2017-07-15] MEDS ORDERED: BUPRENORPHINE HCL 2 MG TAB.SUBL SL SCH (09:00)
[2017-07-15] MEDS ORDERED: METOPROLOL SUCCINATE XL 25 MG TAB.SR.24H PO SCH ×2 (09:00)
--- NOTE | 2017-07-15 09:25 | NUR ---
Client is in the patio with [employer], she reports feeling dizzy and weak, she is transported back to the floor via W/C.
--- NOTE | 2017-07-15 09:30 | NUR ---
Client is in bed, a/o x 4, BP 91/80, P 80, she denies any chest pain or DAVIS. Encourage client to call for assistance is she needs to ambulate, she verbalized understanding. Call light within reach.
[2017-07-15] MEDS: IBUPROFEN 600 MG TABLET PO PRN (09:46)
--- NOTE | 2017-07-15 09:46 | NUR ---
PRN Motrin 600mg PO for left lower molar pain 5/10. Call light within reach.
--- NOTE | 2017-07-15 10:00 | NUR ---
MD Notification Client with Left ankle swelling, she reports some discomfort while ambulating.
--- NOTE | 2017-07-15 10:46 | NUR ---
Reassessment PRN Motrin 600mg PO effective, client verbalizes relief from left lower molar pain 1/10, but tolerable. Call light within reach.
[2017-07-15 12:47] VITALS: BP 103/64
--- NOTE | 2017-07-15 13:40 | NUR ---
Duplex Venous US for unilateral left lower extremity/ankle swelling; rule-out DVT
--- NOTE | 2017-07-15 14:30 | NUR ---
MD NOTIFICATION Ultrasound of the left lower extremity venous system. IMPRESSION: No evidence of deep vein thrombosis.
--- NOTE | 2017-07-15 14:34 | NUR ---
PRN Vistaril 25mg PO administered for anxiety. Call light within reach.
--- NOTE | 2017-07-15 15:34 | NUR ---
Reassessment PRN Vistaril 25mg PO effective, client appears less anxious, she is able to participate in group therapy.
[2017-07-15 16:55] VITALS: BP 114/66
--- NOTE | 2017-07-15 17:14 | NUR ---
Therapist prompted client to attend daily group sessions. Client stated he would attend.
--- NOTE | 2017-07-15 18:45 | NUR ---
PRN TORADOL Pt c/o 05/23 throbbing and sharp tooth pain. PRN Toradol administered as ordered. Calming reassurance provided. Primary nurse to reassess.
[2017-07-15] MEDS ORDERED: BENZOCAINE ORAL CARE 12 ML BOTTLE MM PRN (19:00)
[2017-07-15] MEDS ORDERED: DIPH50CA37 PO (19:08)
[2017-07-15] MEDS ORDERED: IBUP-1955 PO (19:08)
[2017-07-15] MEDS ORDERED: METO50TA7 PO (19:08)
[2017-07-15] MEDS ORDERED: GABA-534 PO (19:08)
[2017-07-15] MEDS ORDERED: HYDR-3895 PO (19:08)
[2017-07-15] MEDS ORDERED: DICY20TA28 PO (19:08)
[2017-07-15] MEDS ORDERED: BACL20TA PO (19:08)
[2017-07-15] MEDS ORDERED: SERT100T12 PO (19:08)
[2017-07-15] MEDS ORDERED: QUET100T PO (19:08)
--- NOTE | 2017-07-15 19:15 | NUR ---
END OF SHIFT & Reassessment Toradol 30mg IM Client is a 27 y/o female, a/ox4, admitted to [facility] for withdrawal from benzodiazepine and heroin. She is on a modified 6 day Ativan/Subutex taper, tolerating well. Last CIWA 4/ COWS 4 @ 1600. PRN Vistaril 25mg Po for anxiety, noted effective, PRN Toradol FOR 9/10 throbbing and sharp R lower tooth pain, noted effective. Duplex Venous US for unilateral left lower extremity/ankle swelling; rule-out DVT. Client is compliant with group therapy. Adequate PO fluid intake 3321 mL, void x 6. She denies any of withdrawal-induced seizures, Client reports allergy to bupropion, carbamazepine, she is full code, Regular diet. Side rails x 2 up/padded for seizure precautions. Call light within reach.
--- NOTE | 2017-07-15 19:28 | NUR ---
Start of Shift Patient is a 27 year old female admitted to [facility] on 07-09-17 for Opiate, and benzo detox. Patient has PMH of Endocarditis, Pulmonary Embolism, Hepatitis C, Anxiety and Depression. She has allergies to Wellbutrin and Tegretol. She is a full code and on a regular diet. She is on fall and seizure precautions. Last COWS 4, CIWA 4. Patient has completed 5 day Ativan and Subutex taper. Safety measures in place, bed locked in lowest position with 2 padded side rails up for safety. Call light within reach. Report received from AM nurse.
[2017-07-15 20:00] VITALS: BP_SYST 105; BP_SYST 147; BP_DIAS 66; BP_DIAS 86
[2017-07-15] MEDS: QUETIAPINE FUMARATE 100 MG TABLET PO SCH (20:47)
--- NOTE | 2017-07-15 20:55 | NUR ---
PRN medication Patient with dental pain lower right and left molars 5/10. Patient received Anbesol 1ml topically to tooth/gum area on r/l lower mouth. Patient with immediate effect noted.
[2017-07-15] MEDS: ASPIRIN/ACETAMINOPHEN/CAFFEINE TABLET PO PRN (21:41)
--- NOTE | 2017-07-15 21:45 | NUR ---
PRN medication Patient with complaints of headache 6 out of 10. Excedrin XS 1 tab administered at 2140. Effect pending.
--- NOTE | 2017-07-15 22:41 | NUR ---
Reassessment of patient Excedrin XS 1 tab administered at 3208 for complaints of headache 6 out of 10 reassessed after one hour. Patient with no further headache pain noted at present time
[2017-07-16] VITALS: BP 88/62
[2017-07-16 04:00] VITALS: BP 110/70
--- NOTE | 2017-07-16 04:03 | NUR ---
COWS/CIWA deferred Patient 0400 CIWA/COWS deferred for sleep.
--- NOTE | 2017-07-16 06:49 | NUR ---
End of Shift Patient is a 27 year old female admitted to [facility] on 07-09-17 for Opiate, and benzo detox. Patient has PMH of Endocarditis, Pulmonary Embolism, Hepatitis C, Anxiety and Depression. She has allergies to Wellbutrin and Tegretol. She is a full code and on a regular diet. She is on fall and seizure precautions. Patient has completed 5 day Ativan and Subutex taper. VS at 2000 BP 105/66, P 83, R 14, SPO2 100% on RA, T 98.2. CIWA 4, COWS 2. Patient with complaints of tooth pain in bilateral lower l/r molars. Anbesol topical applied to areas with good immediate effect. Patient with complaints of headache 02/20 Excedrin XS 1 tab administered at 2141 with good effect. VS at 0000 BP 105/66, P 83, R 14, SPO2 100% on RA, T 98.2. CIWA 3, COWS 3. Vital signs at 0400 BP 110/70, P 72, R 16, T 98.1, SPO2 98% on RA. CIWA/COWS deferred. Slept a total of 4 hours, Intake 3304 ml., output 3 voids, 1 stool. Safety measures in place, bed locked in lowest position with 2 padded side rails up for safety. Call light within reach. Report given to AM nurse.
--- NOTE | 2017-07-16 07:15 | NUR ---
Start of Shift Report from night nurse: pt is a 27 y/o female here for Opiates r/t Heroin 2-3 g IV daily for 7 years, Benzo r/t Xanax 4-6 grams daily for 4 yrs & Klonopin 2-3 grams daily for 1 month; Subutex and Ativan tapers ordered. Pt is a full code, allergic to Wellbutrin and Tegretol, fall and seizure precautions ordered. HHx: Seizure 2011 r/t w/d, Endocarditis and PE 11/2016, Hep C, anxiety, Depression appendectomy, tachycardia & CP 12/2016 and multiple relapses. V/S stable with HR 100, Skin has tracts on BUE's. Pt has high VTE score with medicine prophy of Lovenox ordered. New orders for the pt to be d/c'd to day. last COWS 3 CIWA 3. Pt is awake in room and getting ready for d/c. Will cont. to monitor the pt.
[2017-07-16 08:00] VITALS: BP 114/73
[2017-07-16] MEDS: DICYCLOMINE HCL 20 MG TABLET PO SCH (08:39)
[2017-07-16] MEDS: SERTRALINE HCL 100 MG TABLET PO SCH (08:39)
[2017-07-16] MEDS: BACLOFEN 20 MG TABLET PO SCH (08:39)
[2017-07-16 08:40] VITALS: BP 114/73
[2017-07-16] MEDS: GABAPENTIN 300 MG CAPSULE PO SCH (08:40)
[2017-07-16] MEDS: METOPROLOL SUCCINATE XL 50 MG TAB.SR.24H PO SCH (08:40)
[2017-07-16] MEDS: ENOXAPARIN SODIUM 40 MG/0.4 ML DISP.SYRIN SQ SCH (08:43)
--- NOTE | 2017-07-16 09:33 | NUR ---
Discharge Pt is A&Ox 4, ambulatory independently. Features symmetrical, PERRLA 3mm, no DAVIS, no dizziness and not N/V note. Pt denies chest pain, bilateral pulses present, no edema noted. No SOB or respiratory distress noted. V/S stable. Pt is stable and no w/d s/sx noted at this time. Pt voided and last BM today. Pt is given belongings, d/c summary packet, education, home med and written Rx for psych meds, internal meds electronic per MD. Pt is chaperoned to the [facility] and transported to the [facility] RTC.
== END 2017-07-16 09:33 | disposition other institution (70) | DRG 895 ==
LOC: SRC 22:12
PROVIDERS: ADMIT Internal Medicine; ATTEND Internal Medicine
DX: F13.232 Sedative, hypnotic or anxiolytic dependence with withdrawal with perceptual disturbance (principal); I15.9 Secondary hypertension, unspecified; E83.42 Hypomagnesemia; F11.23 Opioid dependence with withdrawal; F15.10 Other stimulant abuse, uncomplicated; B19.20 Unspecified viral hepatitis C without hepatic coma; F17.210 Nicotine dependence, cigarettes, uncomplicated; G47.00 Insomnia, unspecified; Z86.711 Personal history of pulmonary embolism; F32.9 Major depressive disorder, single episode, unspecified; F41.9 Anxiety disorder, unspecified; R07.89 Other chest pain; R60.0 Localized edema; I49.9 Cardiac arrhythmia, unspecified
CPT/HCPCS: 36415; 70030-TC; 71010; 80307; 80324; 80361; 83735; 84703; 85025; 86580; 86592; 86705; 86803; 87340; 87806; 93005; A9150; G0480; J1650; J1885; J2405; Q0162; Q0163